=== PATIENT | male | born 1945 | race Caucasian/White ===

== ENCOUNTER 2016-09-11 10:52 | Outpatient (CLI) | payer MEDICARE, BC ==
[2012-08-01 01:53] VITALS: O2SAT 100
== END 2016-09-11 10:53 | disposition home or self-care (01) | DRG 561 ==
LOC: CONVCARE 10:52
PROVIDERS: ATTEND Orthopaedic Surgery
DX: S52.502D Unspecified fracture of the lower end of left radius, subsequent encounter for closed fracture with routine healing (principal)
CPT/HCPCS: 73110

== ENCOUNTER 2017-06-10 08:57 | Day surgery (SDC) | payer MEDICARE, BC ==
[~2017-06-10 08:57] MED LIST: LIDOCAINE HCL 1% MPF SOL ONE; PROPOFOL 500 MG/50 ML EMU IV ONE
[2017-06-10 11:11] VITALS: BP 154/86; PULSE 53; RESP 18; TEMP 96.7; O2SAT 98
== END 2017-06-10 11:42 | disposition home or self-care (01) | DRG 951 ==
LOC: SURG 08:57
PROVIDERS: ATTEND Surgery
DX: Z12.11 Encounter for screening for malignant neoplasm of colon (principal); D12.3 Benign neoplasm of transverse colon; Z86.010 Personal history of colon polyps; K64.8 Other hemorrhoids
CPT/HCPCS: J2001; J2704

== ENCOUNTER 2018-06-09 10:06 | Day surgery (SDC) | payer MEDICARE, BC ==
[~2018-06-09 10:06] MED LIST changes: +BUPIVACAINE LIPOSOME 20 ML SUS ONE; +DEXAMETHASONE 20 MG/5 ML (4 MG/ML SOL) ONE; +FENTANYL 100MCG/2ML SOL ONE; +LIDOCAINE HCL 1% MPF 30 SOL ONE; -LIDOCAINE HCL 1% MPF SOL ONE; +MIDAZOLAM 2 MG/2 ML SOL ONE; +ONDANSETRON HCL 4 MG/2 ML SOL ONE; +PROPOFOL 10 MG/ML 200 MG/20 ML EMU IV ONE; -PROPOFOL 500 MG/50 ML EMU IV ONE
[2018-06-09] MEDS ORDERED: BUPIVACAINE LIPOSOME 20 ML SUS ONE (10:07)
[2018-06-09] MEDS ORDERED: PROPOFOL 10 MG/ML 200 MG/20 ML EMU IV ONE (11:29)
[2018-06-09 12:06] VITALS: TEMP 97.3
[2018-06-09 12:30] VITALS: BP 110/63; PULSE 62; RESP 20; O2SAT 94
== END 2018-06-09 13:20 | disposition home or self-care (01) | DRG 395 ==
LOC: SURG 10:06
PROVIDERS: ATTEND Surgery
DX: K64.8 Other hemorrhoids (principal); D12.6 Benign neoplasm of colon, unspecified
CPT/HCPCS: J0330; J1100; J2250; J2405; J3010; J2001; J2704